=== PATIENT | male | born 1970 | race Caucasian/White ===

== ENCOUNTER → 2016-08-28 | Outpatient (CLI) | payer OTHER ==
[~2016-08-28] MED LIST: AMOXICILLIN500 M3 PO; DAYPRO600 M1 PO; FLEXERIL10 MG PO; MOTRIN800 MG PO; ROBAXIN750 MG PO
== END | disposition home or self-care (01) ==
LOC: RAD 14:26
DX: M43.12 Spondylolisthesis, cervical region (principal); M47.892 Other spondylosis, cervical region; M79.605 Pain in left leg; M79.604 Pain in right leg; M54.5 Low back pain; R29.2 Abnormal reflex; R20.0 Anesthesia of skin

== ENCOUNTER → 2016-09-13 | Outpatient (CLI) | payer OTHER | END | disposition home or self-care (01) | LOC: CT 13:17 | DX: M48.07 Spinal stenosis, lumbosacral region (principal); M51.27 Other intervertebral disc displacement, lumbosacral region; M47.896 Other spondylosis, lumbar region; R20.0 Anesthesia of skin; M54.2 Cervicalgia; G89.29 Other chronic pain ==

== ENCOUNTER → 2016-12-05 | Outpatient (CLI) | payer OTHER ==
[2016-12-05 19:48] LABS: BASO % 0.4 % (0.0-1.0); EOS # 0.2 10*3/uL (0.0-0.4); EOS % 2.3 % (1.0-4.0); HEMATOCRIT 42.9 % (42.0-52.0); HEMOGLOBIN 14.3 g/dl (14.0-18.0); LYMPH # 1.7 10*3/uL (1.3-4.4); LYMPH % 20.9 % (27.0-41.0); MEAN CELL VOLUME 94.5 fl (80.0-94.0); MEAN CORPUSCULAR HGB 31.5 pg (27.0-31.0); MEAN CORPUSCULAR HGB CONC 33.3 g/dl (33.0-37.0); MEAN PLATELET VOLUME 8.8 fl (9.6-12.3); MONO # 0.5 10*3/uL (0.1-1.0); MONO % 6.5 % (3.0-9.0); NEUT # 5.6 10*3/uL (2.3-7.9); NEUT % 69.5 % (47.0-73.0); PLATELET COUNT AUTOMATED 375 10*3/uL (130-400); RED BLOOD COUNT 4.54 10*6/uL (4.50-5.90); RED CELL DISTRI WIDTH 11.5 % (0-14.5); WHITE BLOOD COUNT 8.1 10*3/uL (4.8-10.8)
== END | disposition home or self-care (01) ==
LOC: LAB 18:57
PROVIDERS: Nurse Practitioner Acute Care
DX: M48.06 Spinal stenosis, lumbar region (principal)

== ENCOUNTER → 2017-01-25 | Outpatient (CLI) | payer OTHER | END | disposition home or self-care (01) | LOC: CT 13:00 | DX: M51.27 Other intervertebral disc displacement, lumbosacral region (principal); M48.06 Spinal stenosis, lumbar region ==

== ENCOUNTER 2017-09-24 17:04 | Emergency (ER) | payer OTHER ==
[~2017-09-24] VITALS: Wt 72.6 kg
[~2017-09-24 17:04] MED LIST changes: -CYCLOBENZAPRINE5 M3 PO; -DELTASONE20 M1 PO; -ULTRAM50 MG PO
[2017-09-24] MEDS ORDERED: CYCLOBENZAPRINE5 M3 PO (18:35)
[2017-09-24] MEDS ORDERED: DELTASONE20 M1 PO (18:35)
[2017-09-24] MEDS ORDERED: ULTRAM50 MG PO (18:35)
== END 2017-09-24 18:45 | disposition home or self-care (01) ==
LOC: ED 17:04
DX: M54.12 Radiculopathy, cervical region (principal); F17.200 Nicotine dependence, unspecified, uncomplicated

== ENCOUNTER → 2017-09-24 | Outpatient (CLI) | payer OTHER ==
[~2017-09-24] MED LIST changes: +CYCLOBENZAPRINE5 M3 PO; +DELTASONE20 M1 PO; +ULTRAM50 MG PO
== END | disposition home or self-care (01) ==
LOC: RAD 16:23
DX: Z51.81 Encounter for therapeutic drug level monitoring (principal); G89.29 Other chronic pain; M25.512 Pain in left shoulder; Z72.0 Tobacco use; Z82.49 Family history of ischemic heart disease and other diseases of the circulatory system

== ENCOUNTER → 2017-10-17 | Outpatient (CLI) | payer OTHER ==
[~2017-10-17] MED LIST changes: +CYCLOBENZAPRINE5 M3 PO; +DELTASONE20 M1 PO; +ULTRAM50 MG PO
== END | disposition home or self-care (01) ==
LOC: CP 10:37
DX: J44.9 Chronic obstructive pulmonary disease, unspecified (principal)

== ENCOUNTER → 2019-02-04 | Day surgery (SDC) | payer OTHER ==
[2019-01-29 12:57] VITALS: BP 108/69
[~2019-02-04] VITALS: Ht 180.3 cm; Wt 72.6 kg
[~2019-02-04] MED LIST changes: +MULTI-VITAMIN1 EACH PO; +NORCO 5-325 TA1 EACH PO; +PENICILLIN VK500 MG PO
--- NOTE | ~2019-02-04 | O ---
[place], [place] OPERATIVE NOTE NAME: JOSE C DELGADILLO UNIT #: [id number] ROOM: DOCTOR: BROOK SMITH DMD BIRTHDATE: [birth year] DOS: 02/04/2019 PREOPERATIVE DIAGNOSES: Nonrestorable maxillary mandibular dentition and anxiety. POSTOPERATIVE DIAGNOSES: Nonrestorable maxillary mandibular dentition and anxiety. ANESTHESIA: General anesthesia with endotracheal intubation. FLUIDS: Minimal. ESTIMATED BLOOD LOSS: Minimal. COMPLICATIONS: None. CONDITION: To PACU, stable. DESCRIPTION OF PROCEDURE: The patient was brought to the OR and placed in supine position. IV and EKG lines were placed. Endotracheal intubation and general anesthesia was administered. The patient was prepped and draped for oral procedures. Risks and benefits were explained to the patient prior to surgery. Clinical exam and x-rays taken determined nonrestorable maxillary and mandibular dentition. PROCEDURES PERFORMED: Complete extraction of teeth numbers 6, 7, 9, 10, 11, 12, 16, 17, 21, 22, 23, 24, 25, 26, 27, 28, 29 and 32. Moderate alveoplasty in all 4 quadrants. Sutured with 4-0 Vicryl. Lavaged x 2. Throat pack removed. The patient left the OR in good condition and went to the PACU. BROOK SMITH DMD CM:OPRECORD:OPERATIVE NOTE [id number] BROOK SMITH DMD 02/05/1933 interface
[2019-02-04 06:45] VITALS: BP 106/75
[2019-02-04 08:52] VITALS: BP 130/95
[2019-02-04 09:07] VITALS: BP 133/82
[2019-02-04 09:22] VITALS: BP 130/78
[2019-02-04 09:40] VITALS: BP 131/74
[2019-02-04 09:52] VITALS: BP 131/80
== END | disposition home or self-care (01) ==
LOC: SDC 01-28 13:15
DX: K08.89 Other specified disorders of teeth and supporting structures (principal); K02.9 Dental caries, unspecified; F41.9 Anxiety disorder, unspecified; J44.9 Chronic obstructive pulmonary disease, unspecified

== ENCOUNTER → 2019-03-17 | Outpatient (CLI) | payer OTHER ==
[2019-03-17 12:10] LABS: PTH INTACT 17.8 pg/mL (18.5-88.0)
== END | disposition home or self-care (01) ==
LOC: LAB 10:03
PROVIDERS: Nurse Practitioner Family
DX: M43.12 Spondylolisthesis, cervical region (principal); M25.511 Pain in right shoulder; E83.51 Hypocalcemia

== ENCOUNTER 2019-04-28 20:30 | Emergency (ER) | payer OTHER ==
[~2019-04-28] VITALS: Ht 180.3 cm; Wt 68.9 kg
[2019-04-28] MEDS ORDERED: HYDROXYZINE PAM50 MG PO (20:35)
[2019-04-28] MEDS ORDERED: DICLOFENAC SOD75 MG PO (20:35)
[2019-04-28] MEDS ORDERED: 'XANAX1 MG PO (20:35)
[2019-04-28] MEDS ORDERED: MIRTAZAPINE15 M2 PO (20:36)
== END 2019-04-28 23:15 ==
LOC: ED 20:30
DX: S00.11XA Contusion of right eyelid and periocular area, initial encounter (principal); S10.91XA Abrasion of unspecified part of neck, initial encounter; F32.9 Major depressive disorder, single episode, unspecified; F41.9 Anxiety disorder, unspecified; J44.9 Chronic obstructive pulmonary disease, unspecified; F17.200 Nicotine dependence, unspecified, uncomplicated; Z79.899 Other long term (current) drug therapy; Y35 Legal intervention; Y93.89 Activity, other specified; Y92.89 Other specified places as the place of occurrence of the external cause; Y99.8 Other external cause status

== ENCOUNTER → 2019-07-15 | Outpatient (CLI) | payer OTHER ==
[~2019-07-15] MED LIST changes: +'XANAX1 MG PO; +DICLOFENAC SOD75 MG PO; +HYDROXYZINE PAM50 MG PO; +MIRTAZAPINE15 M2 PO
== END | disposition home or self-care (01) ==
LOC: RAD 16:40
DX: J44.9 Chronic obstructive pulmonary disease, unspecified (principal); R10.13 Epigastric pain; D64.9 Anemia, unspecified; R05 Cough; R79.89 Other specified abnormal findings of blood chemistry

== ENCOUNTER 2019-10-19 09:59 | Emergency (ER) | payer OTHER ==
[~2019-10-19] VITALS: Ht 180.3 cm; Wt 78.0 kg
[2019-10-19] MEDS ORDERED: CYCLOBENZAPRINE5 M3 PO (11:52)
[2019-10-19] MEDS ORDERED: NORCO 5-325 TA1 EACH PO (11:52)
[2019-10-19] MEDS ORDERED: MEDROL DOSEPAK4 MG PO (11:52)
== END 2019-10-19 11:55 | disposition home or self-care (01) ==
LOC: ED 09:59
DX: M54.16 Radiculopathy, lumbar region (principal); J44.9 Chronic obstructive pulmonary disease, unspecified; F17.200 Nicotine dependence, unspecified, uncomplicated; Z79.899 Other long term (current) drug therapy

== ENCOUNTER 2019-12-03 18:13 | Emergency (ER) | payer OTHER ==
[~2019-12-03] VITALS: Ht 180.3 cm; Wt 74.8 kg
[~2019-12-03 18:13] MED LIST changes: +MEDROL DOSEPAK4 MG PO
== END 2019-12-03 20:29 | disposition home or self-care (01) ==
LOC: ED 18:13
DX: M54.5 Low back pain (principal); G89.29 Other chronic pain; F41.9 Anxiety disorder, unspecified; J44.9 Chronic obstructive pulmonary disease, unspecified; F17.200 Nicotine dependence, unspecified, uncomplicated; Z79.899 Other long term (current) drug therapy

== ENCOUNTER → 2019-12-19 | Outpatient (CLI) | payer OTHER ==
[2019-12-19 11:25] LABS: BASO % 0.4 % (0.0-1.0); EOS # 0.3 10*3/uL (0.0-0.4); EOS % 3.6 % (1.0-4.0); HEMATOCRIT 41.6 % (42.0-52.0); LYMPH # 1.8 10*3/uL (1.3-4.4); LYMPH % 19.2 % (27.0-41.0); MEAN CELL VOLUME 90.8 fl (80.0-94.0); MEAN CORPUSCULAR HGB 29.9 pg (27.0-31.0); MEAN CORPUSCULAR HGB CONC 32.9 g/dl (33.0-37.0); MEAN PLATELET VOLUME 9.6 fl (9.6-12.3); MONO # 0.8 10*3/uL (0.1-1.0); NEUT # 6.5 10*3/uL (2.3-7.9); NEUT % 68.4 % (47.0-73.0); PLATELET COUNT AUTOMATED 242 10*3/uL (130-400); RED BLOOD COUNT 4.58 10*6/uL (4.50-5.90); RED CELL DISTRI WIDTH 13.3 % (0-14.5); WHITE BLOOD COUNT 9.5 10*3/uL (4.8-10.8)
[2019-12-19 11:39] LABS: ALBUMIN 3.5 gm/dl (3.1-4.5); ALKALINE PHOSPHATASE 112 U/L (45-117); BUN 13 mg/dl (7-24); CHLORIDE 109 mmol/L (98-107); CHOLESTEROL 164 mg/dL (<200); CREATININE 0.77 mg/dL (0.70-1.30); FREE T4 1.42 ng/dl (0.76-1.46); HDL CHOLESTEROL 42 mg/dl (40-60); SGOT/AST 19 IU/L (3-35); SGPT/ALT 29 U/L (12-78); SODIUM 139 mmol/L (136-145); TOTAL PROTEIN 6.7 gm/dL (6.4-8.2); TRIGLYCERIDES 467 mg/dl (<150)
[2019-12-19 12:38] LABS: VITAMIN D, 25-HYDROXY 34.9 ng/mL (30-100)
== END | disposition home or self-care (01) ==
LOC: LAB 10:54
PROVIDERS: Internal Medicine
DX: Z00.01 Encounter for general adult medical examination with abnormal findings (principal); R53.81 Other malaise